=== PATIENT | male | born 1985 | race Two or more races ===

== ENCOUNTER 2017-10-10 08:08 | Outpatient (CLI) | payer OTHER | END 2017-10-10 08:18 | disposition home or self-care (01) | LOC: RAD 08:08 | DX: J44.9 Chronic obstructive pulmonary disease, unspecified (principal) ==

== ENCOUNTER 2020-05-14 08:51 | Emergency (ER) | payer OTHER ==
[~2020-05-14] VITALS: Ht 182.9 cm; Wt 68.0 kg
[2020-05-14] MEDS ORDERED: KETO10TA2 PO (12:19)
== END 2020-05-14 12:43 | disposition home or self-care (01) ==
LOC: ER 08:51
DX: S43.102A Unspecified dislocation of left acromioclavicular joint, initial encounter (principal); S40.012A Contusion of left shoulder, initial encounter; W18.39XA Other fall on same level, initial encounter; Y93.89 Activity, other specified; Y92.89 Other specified places as the place of occurrence of the external cause; Y99.8 Other external cause status

== ENCOUNTER → 2020-12-31 | Emergency (ER) | payer OTHER ==
[~2020-12-31] VITALS: Ht 182.9 cm; Wt 68.0 kg
[~2020-12-31] MED LIST: KETO10TA2 PO
== END | disposition left against medical advice (07) ==
LOC: ER 06:52
DX: Z53.21 Procedure and treatment not carried out due to patient leaving prior to being seen by health care provider (principal)

== ENCOUNTER 2021-09-12 11:28 | Emergency (ER) | payer OTHER ==
[~2021-09-12] VITALS: Ht 182.9 cm; Wt 70.3 kg
[2021-09-12] MEDS ORDERED: ADDERALL 20 MG20 MG (12:25)
== END 2021-09-12 16:19 | disposition home or self-care (01) ==
LOC: ER 11:28
DX: A56.8 Sexually transmitted chlamydial infection of other sites (principal); Z20.2 Contact with and (suspected) exposure to infections with a predominantly sexual mode of transmission

== ENCOUNTER → 2021-12-06 | Emergency (ER) | payer OTHER ==
[~2021-12-06] MED LIST changes: +ADDERALL 20 MG20 MG
== END | disposition left against medical advice (07) ==
LOC: ER 19:41
DX: Z53.21 Procedure and treatment not carried out due to patient leaving prior to being seen by health care provider (principal)